=== PATIENT | male | born 1935 | race Caucasian/White ===

== ENCOUNTER → 2018-02-03 | Outpatient (CLI) | payer MEDICARE | END | disposition home or self-care (01) | LOC: PCVCCLINIC 13:30 | DX: N18.3 Chronic kidney disease, stage 3 (moderate) (principal); R06.09 Other forms of dyspnea; E78.5 Hyperlipidemia, unspecified; R53.83 Other fatigue; R07.89 Other chest pain | CPT/HCPCS: 93005; G0463 ==